=== PATIENT | male | born 1945 | race African-American/Black ===

== ENCOUNTER 2018-12-07 00:56 | Emergency (ER) | payer OTHER | END 2018-12-07 12:45 | disposition home or self-care (01) | LOC: ER FS 00:56 → 4TH 01:42 ==

== ENCOUNTER 2018-12-11 17:06 | Emergency (ER) | payer OTHER | END 2018-12-11 17:55 | disposition home or self-care (01) | LOC: ER FS 17:06 ==

== ENCOUNTER 2019-07-15 05:35 | Outpatient (CLI) | payer OTHER ==
[~2019-07-15] VITALS: Ht 187 cm; Wt 105.0 kg
[~2019-07-15 05:35] MED LIST: SUCR1TAB36 PO
[2019-07-15] MEDS ORDERED: ALLO100T PO (12:03)
[2019-07-15] MEDS ORDERED: HYDR-3812 PO (12:03)
[2019-07-15] MEDS ORDERED: INSU100V5 SQ (12:07)
[2019-07-15] MEDS ORDERED: INSU100V16 SQ (12:07)
[2019-07-15] MEDS ORDERED: METO50TA7 PO (12:17)
[2019-07-15] MEDS ORDERED: DOCU100T7 PO (12:17)
[2019-07-15] MEDS ORDERED: LOSA50TA63 PO (12:17)
[2019-07-15] MEDS ORDERED: MULT-178 PO (12:17)
[2019-07-15] MEDS ORDERED: DULA1.5P2 SQ (12:17)
[2019-07-15] MEDS ORDERED: CALC0.253 PO (12:17)
[2019-07-15] MEDS ORDERED: ATOR40TA70 PO (12:17)
[2019-07-15] MEDS ORDERED: PANT40TA3 PO (12:17)
== END 2019-07-15 12:59 | disposition home or self-care (01) ==
LOC: PREOP 05:35
PROVIDERS: ATTEND Surgery
DX: Z01.818 Encounter for other preprocedural examination (principal)

== ENCOUNTER 2019-08-13 13:04 | Emergency (ER) | payer OTHER ==
[~2019-08-13 13:04] MED LIST changes: +ACHD5005 PO; +ALLO100T PO; +ATOR40TA70 PO; +CALC0.253 PO; +DOCU100T7 PO; +DULA1.5P2 SQ; +INSU100V16 SQ; +INSU100V5 SQ; +LOSA50TA63 PO; +METO50TA7 PO; +MULT-178 PO; +PANT40TA3 PO
--- NOTE | 2019-08-13 13:17 | ED Respiratory ---
General Chief Complaint: Respiratory Problems Stated Complaint: SOB Source: patient, EMS Exam Limitations: no limitations History of Present Illness Date Seen by Provider: Aug 13, 2019 Time Seen by Provider: 13:16 Initial Comments 74-year-old male presents with shortness of breath. Patient reports that right after dialysis he got really short of breath. Patient has had a cough and illness for about a week. Patient denies any fever and is afebrile upon presenta tion. He does have some mild shortness of breath. Patient was given oxygen in route and reports he felt a lot better. Patient has no nausea vomiting or other systemic complaints. Allergies and Home Medications Allergies Coded Allergies: niacin (Verified Allergy, Mild, WEAKNESS, 07/15/19) Home Medications Albuterol Sulfate 2.5 Mg/3 Ml Vial.neb, 2.5 MG INH Q4H PRN for WHEEZING Prescribed by: KAROLINA DORAN on 08/13/19 1420 Allopurinol 100 Mg Tablet, 100 MG PO DAILY, (Reported) Atorvastatin Calcium 40 Mg Tablet, 40 MG PO DAILY, (Reported) Calcitriol 0.25 Mcg Capsule, 1 MCG PO MoWeFr, (Reported) Docusate Sodium 100 Mg Tablet, 100 MG PO DAILY, (Reported) Doxycycline Hyclate 100 Mg Tablet, 100 MG PO BID Prescribed by: KAROLINA DORAN on 08/13/19 142 Dulaglutide 1.5 Mg/0.5 Ml Pen.injctr, 1.5 MG SQ WEEK, (Reported) Hydrocodone Bit/Acetaminophen 1 Each Tablet, 1 TAB PO Q4-6HR, (Reported) Insulin Aspart 100 Unit/1 Ml Susp, 10-20 UNIT SQ AC, (Reported) Insulin Determir 1,000 Units/10 Ml Soln, 70 UNITS SQ HS, (Reported) Losartan Potassium 50 Mg Tablet, 50 MG PO DAILY, (Reported) Metoprolol Succinate 50 Mg Tab.er.24h, 150 MG PO BID, (Reported) Multivitamin 1 Each Tablet, 1 EACH PO DAILY, (Reported) Pantoprazole Sodium 40 Mg Tablet.dr, 40 MG PO DAILY, (Reported) Patient Home Medication List Home Medication List Reviewed: Yes Review of Systems Review of Systems Constitutional: see HPI EENTM: no symptoms reported Respiratory: cough, short of breath Cardiovascular: No chest pain, No palpitations Gastrointestinal: no symptoms reported Genitourinary: no symptoms reported Musculoskeletal: no symptoms reported Psychiatric/Neurological: No Symptoms Reported Past Lrreuqr-Yttajk-Hsxuem Hx Past Med/Social Hx: Reviewed Nursing Past Med/Soc Hx Patient Social History Alcohol Use: Denies Use Recreational Drug Use: No Smoking Status: Former Smoker Former Smoker, Quit: Jul 15, 1996 2nd Hand Smoke Exposure: Yes Recent Foreign Travel: Yes Recent Hopitalizations: No Immunizations Up To Date Date of Pneumonia Vaccine: Mar 09, 2018 Date of Influenza Vaccine: Mar 03, 2019 Seasonal Allergies Seasonal Allergies: No Past Medical History Surgeries: Yes (av graft, shoulder surgery, PROSTATE) Respiratory: No Cardiac: Yes (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, HAS HAD EPISODE A-FIB) Atrial Fibrillation, Coronary Artery Disease, Heart Attack, High Cholesterol, Hypertension Neurological: No Sexually Transmitted Disease: No HIV/AIDS: No Genitourinary: Yes Renal Failure, Dialysis Gastrointestinal: Yes Gastroesophageal Reflux, Chronic Constipation Musculoskeletal: Yes Arthritis, Chronic Back Pain Endocrine: Yes Diabetes, Insulin dep HEENT: No (READING GLASSES, DENTURES) Loss of Vision: Denies Hearing Impairment: Denies Cancer: Yes Prostate Did You Recieve Any Treatments: Yes What Type of Treatment Did You: Radiation, Surgical Intervention Psychosocial: No Integumentary: No Blood Disorders: Yes (ANEMIA) Adverse Reaction/Blood Tranf: No (HAS HAD BLOOD WITH NO REACTION) Family Medical History Cardiovascular disease 19 FATHER 19 MOTHER Diabetes mellitus 19 FATHER 19 MOTHER FH: prostate cancer 19 FATHER No Pertinent Family Hx Physical Exam Vital Signs - First Documented 08/13/19 13:09 Temp 36.4 Pulse 85 Resp 22 B/P (MAP) 197/66 (109) Pulse Ox 96 O2 Delivery Nasal Cannula O2 Flow Rate 2.00 Capillary Refill : Height: 6'1.00" Weight: 222lbs. 0.0oz. 100.775834hd; 30.02 BMI Method:Stated General Appearance: WD/WN, no apparent distress HEENT: PERRL/EOMI Neck: non-tender Respiratory: decreased breath sounds (mild diffuse) Cardiovascular: normal peripheral pulses, regular rate, rhythm Gastrointestinal: non tender, soft Extremities: normal range of motion, non-tender Neurologic/Psychiatric: normal mood/affect, oriented x 3 Skin: normal color, warm/dry Progress/Results/Core Measures Suspected Sepsis SIRS Temperature: Pulse: Respiratory Rate: Laboratory Tests 08/13/19 13:15: White Blood Count 5.4 Blood Pressure / Mean: Laboratory Tests 08/13/19 13:15: Creatinine 5.53H, Platelet Count 108L, Total Bilirubin 0.7 Results/Orders Lab Results Laboratory Tests Test 08/13/19 13:15 Range/Units White Blood Count 5.4 4.3-11.0 10^3/uL Red Blood Count 3.88 L 4.35-5.85 10^6/uL Hemoglobin 11.1 L 13.3-17.7 G/DL Hematocrit 35 L 40-54 % Mean Corpuscular Volume 89 80-99 FL Mean Corpuscular Hemoglobin 29 25-34 PG Mean Corpuscular Hemoglobin Concent 32 32-36 G/DL Red Cell Distribution Width 15.9 H 10.0-14.5 % Platelet Count 108 L 130-400 10^3/uL Mean Platelet Volume 13.3 H 7.4-10.4 FL Neutrophils (%) (Auto) 69 42-75 % Lymphocytes (%) (Auto) 14 12-44 % Monocytes (%) (Auto) 15 H 0-12 % Eosinophils (%) (Auto) 1 0-10 % Basophils (%) (Auto) 1 0-10 % Neutrophils # (Auto) 3.8 1.8-7.8 X 10^3 Lymphocytes # (Auto) 0.8 L 1.0-4.0 X 10^3 Monocytes # (Auto) 0.8 0.0-1.0 X 10^3 Eosinophils # (Auto) 0.0 0.0-0.3 10^3/uL Basophils # (Auto) 0.0 0.0-0.1 10^3/uL Sodium Level 140 135-145 MMOL/L Potassium Level 2.6 L 3.6-5.0 MMOL/L Chloride Level 94 L 98-107 MMOL/L Carbon Dioxide Level 23 21-32 MMOL/L Anion Gap 23 H 5-14 MMOL/L Blood Urea Nitrogen 20 H 7-18 MG/DL Creatinine 5.53 H 0.60-1.30 MG/DL Estimat Glomerular Filtration Rate 12 BUN/Creatinine Ratio 4 Glucose Level 202 H 70-105 MG/DL Calcium Level 9.7 8.5-10.1 MG/DL Corrected Calcium 9.6 8.5-10.1 MG/DL Magnesium Level 2.0 1.6-2.4 MG/DL Total Bilirubin 0.7 0.1-1.0 MG/DL Aspartate Amino Transf (AST/SGOT) 31 5-34 U/L Alanine Aminotransferase (ALT/SGPT) 20 0-55 U/L Alkaline Phosphatase 141 H 40-136 U/L C-Reactive Protein 4.48 H <0.50 MG/DL Total Protein 7.5 6.4-8.2 GM/DL Albumin 4.1 3.2-4.5 GM/DL Micro Results Microbiology 08/13/19 Influenza Types A,B Antigen (ASHLEE) - Final, Complete 08/13/19 Respiratory Syncytial Virus Ag - Final, Complete My Orders Orders - DORAN,KAROLINA L DO Cbc With Automated Diff (08/13/19 13:17) Comprehensive Metabolic Panel (08/13/19 13:17) Ipratropium 0.02% Neb Solution (Atrovent (08/13/19 13:30) Magnesium (08/13/19 13:17) Chest Pa/Lat (2 View) (08/13/19 13:17) Ekg Tracing (08/13/19 13:17) O2 (08/13/19 13:17) Ed Iv/Invasive Line Start (08/13/19 13:17) Monitor-Rhythm Ecg Trace Only (08/13/19 13:17) Crp Fs (08/13/19 13:17) Svn Small Volume Nebulizer (08/13/19 13:17) Influenza A And B Antigens (08/13/19 13:17) Rsv Antigen (08/13/19 13:17) Potassium Chloride (Tablet) (K Dur Table (08/13/19 14:00) Medications Given in ED Current Medications Medications Dose Ordered Sig/Sp Route Start Time Stop Time Status Last Admin Dose Admin Ipratropium [place] 0.5 mg ONCE ONCE IH 08/13/19 13:30 08/13/19 13:31 DC 08/13/19 13:25 0.5 MG Vital Signs/I&O 08/13/19 13:09 Temp 36.4 Pulse 85 Resp 22 B/P (MAP) 197/66 (109) Pulse Ox 96 O2 Delivery Nasal Cannula O2 Flow Rate 2.00 Capillary Refill : Progress Note : Time: 14:23 Progress Note Patient's breathing improved signally with her breathing treatment. Patient with a bilateral pneumonia on x-ray. Due to current covid recommendations her CBC patient does not meet qualifications for testing. Patient does not have a fever and symptoms. And he has no known close contact with a confirmed case. Due to these recommendations patient will not be further tested. I will prescribe him an albuterol inhaler and doxycycline for his pneumonia. ECG Initial ECG Impression Date: Aug 13, 2019 Initial ECG Impression Time: 13:17 Initial ECG Rhythm: Normal Sinus Initial ECG Intervals: NC (281) Initial ECG Impression: Nonspecific Changes Diagnostic Imaging Diagonstic Imaging: Xray Plain Films/CT/US/NM/MRI: chest Comments NAME: MANISH SUAREZ [facility] REC#: [id number] PT STATUS: REG ER : 1945 PHYSICIAN: KAROLINA DORAN DO ADMIT DATE: 08/13/19/ER FS Draft Date of Exam:08/13/19 CHEST PA/LAT (2 VIEW) EXAMINATION: CHEST (PA AND LATERAL). CLINICAL INDICATION: 73-year-old male, shortness of breath. COMPARISON: None. FINDINGS: The heart size and mediastinal contours are unremarkable. There are atherosclerotic calcifications. There is no identified pneumothorax. There are small bilateral pleural effusions. There are bilateral predominantly interstitial opacities. There appears to be additional alveolar consolidation in the right lower lobe and potentially within the medial aspect of the left lower lobe. IMPRESSION: 1. Small bilateral pleural effusions with bilateral predominantly interstitial opacities. Interstitial opacities can be seen with pulmonary interstitial edema or atypical infection. 2. Additional nonspecific alveolar consolidation in the right lower lobe and potentially within the medial aspect of the left lower lobe. Departure Impression Primary Impression: Pneumonia Qualified Codes: J18.9 - Pneumonia, unspecified organism Disposition: 01 HOME, SELF-CARE Condition: Stable Departure-Patient Inst. Referrals: NO,LOCAL PHYSICIAN (PCP/Family) Primary Care Physician Patient Instructions: Pneumonia, Adult (DC) Add. Discharge Instructions: Please stay isolated for 14 days due to concerns for coronavirus. Use inhaler every 4 hours for the first 24 hours while awake then as needed Call your primary care provider in the next 2-3 days for a telemedicine consult to ensure improvement Return to the ER if symptoms severely worsen Emergency department focuses on treating and ruling out life-threatening diseases. Whenever possible, a diagnosis is given. However, most patients are given an impression based on their history, physical exam, and workup during your brief time in the ER. Information about probable diagnosis and other educational material has been provided. Please take the time to read and understand this information. It is very important that you follow up with a physician as discussed during the visit today. Failure to adhere to your follow-up instructions may lead to severe disability, injury, or so please make sure to keep your appointments or obtain one as requested. Please keep in mind the emergency department is not designed to your primary care or "family doctor" and nonurgent issues are best evaluated by an outpatient physician All discharge instructions reviewed with patient and/or family. Voiced understanding. Scripts Doxycycline Hyclate (Doxycycline Hyclate) 100 Mg Tablet 100 MG PO BID, #20 TAB 0 Refills Prov: KAROLINA DORAN DO 08/13/19 Albuterol Sulfate (Albuterol Sulfate) 2.5 Mg/3 Ml Vial.neb 2.5 MG INH Q4H PRN for WHEEZING, #50 EA 1 Refill Prov: KAROLINA DORAN DO 08/13/19 KAROLINA DORAN DO Aug 13, 2019 13:16
[2019-08-13] MEDS ORDERED: RT-IPRATROPIUM (ATROVENT) 0.5MG/2.5ML AMP IH ONE (13:30)
[2019-08-13 13:45] LABS: HEMATOCRIT 35 % (40-54); HEMOGLOBIN 11.1 G/DL (13.3-17.7); MEAN CORPUSCULAR HEMOGLOBIN 29 PG (25-34); MEAN CORPUSCULAR HGB CONC 32 G/DL (32-36); MEAN CORPUSCULAR VOLUME 89 FL (80-99); RED CELL DISTRIBUTION WIDTH 15.9 % (10.0-14.5); WHITE BLOOD COUNT 5.4 10^3/uL (4.3-11.0)
[2019-08-13 13:46] LABS: BASOPHILS % (AUTO) 1 % (0-10); EOSINOPHILS % (AUTO) 1 % (0-10); LYMPHOCYTES # (AUTO) 0.8 X 10^3 (1.0-4.0); LYMPHOCYTES % (AUTO) 14 % (12-44); MEAN PLATELET VOLUME 13.3 FL (7.4-10.4); MONOCYTES # (AUTO) 0.8 X 10^3 (0.0-1.0); MONOCYTES % (AUTO) 15 % (0-12); NEUTROPHILS # (AUTO) 3.8 X 10^3 (1.8-7.8); NEUTROPHILS % (AUTO) 69 % (42-75); PLATELET COUNT 108 10^3/uL (130-400)
[2019-08-13 13:47] LABS: CREATININE SERUM 5.53 MG/DL (0.60-1.30); POTASSIUM 2.6 MMOL/L (3.6-5.0)
[2019-08-13 13:48] LABS: ALBUMIN 4.1 GM/DL (3.2-4.5); BILIRUBIN,TOTAL 0.7 MG/DL (0.1-1.0); CALCIUM 9.7 MG/DL (8.5-10.1); TOTAL PROTEIN 7.5 GM/DL (6.4-8.2)
--- NOTE | 2019-08-13 13:49 | Diagnostic Imaging Report ---
EXAMINATION: CHEST (PA AND LATERAL). CLINICAL INDICATION: 73-year-old male, shortness of breath. COMPARISON: None. FINDINGS: The heart size and mediastinal contours are unremarkable. There are atherosclerotic calcifications. There is no identified pneumothorax. There are small bilateral pleural effusions. There are bilateral predominantly interstitial opacities. There appears to be additional alveolar consolidation in the right lower lobe and potentially within the medial aspect of the left lower lobe. IMPRESSION: 1. Small bilateral pleural effusions with bilateral predominantly interstitial opacities. Interstitial opacities can be seen with pulmonary interstitial edema or atypical infection. 2. Additional nonspecific alveolar consolidation in the right lower lobe and potentially within the medial aspect of the left lower lobe. Dictated by: Dictated on workstation # [id number]
[2019-08-13] MEDS ORDERED: KCL 20 MEQ TAB (K-DUR) PO ONE (14:00)
[2019-08-13] MEDS ORDERED: ALBU2.5V4 INH (14:20)
[2019-08-13] MEDS ORDERED: DOXY100T2 PO (14:20)
[2019-08-13 14:39] VITALS: BP 175/53
--- OUTSIDE RECORDS SUMMARY | 2019-08-13 17:23 | XMS REPORT | Continuity of Care Document ---
Author Organization Unknown Address Unknown Phone Unavailable Allergies Active Description Code Type Severity Reaction Onset Reported/Identified Relationship to Patient Clinical Status Yes niacin [id number] Drug Allergy Unknown N/A 12/07/2018 Yes No Known Drug Allergies [id number] Drug Allergy Unknown N/A 12/07/2018 Yes niacin [id number] Drug Allergy Mild WEAKNESS 07/15/2019 Medications There is no data. Problems Date Dx Coded Attending Type Code Diagnosis Diagnosed By 12/07/2018 SULEMAN PADGETT DO Ot E11. 9 TYPE 2 DIABETES MELLITUS WITHOUT COMPLIC 12/07/2018 SULEMAN PADGETT DO Ot I10 ESSENTIAL (PRIMARY) HYPERTENSION 12/07/2018 SULEMAN PADGETT DO Ot K25. 9 GASTRIC ULCER, UNSP ACUTE OR CHRONIC, 12/07/2018 SULEMAN PADGETT DO Ot K29. 50 UNSPECIFIED CHRONIC GASTRITIS WITHOUT BL 12/07/2018 SULEMAN PADGETT DO Ot K31. 9 DISEASE OF STOMACH AND DUODENUM, UNSPECI 12/07/2018 SULEMAN PADGETT DO Ot N19 UNSPECIFIED KIDNEY FAILURE 12/07/2018 SULEMAN PADGETT DO Ot Z79. 4 SKILLED NURSING (CURRENT) USE OF INSULIN 12/07/2018 SULEMAN PADGETT DO Ot Z79.899 OTHER SUSTAINABILITY CONSULTANT (CURRENT) DRUG THERAPY 12/07/2018 SULEMAN PADGETT DO Ot Z80. 42 FAMILY HISTORY OF MALIGNANT NEOPLASM OF 12/07/2018 SULEMAN PADGETT DO Ot Z82. 49 FAMILY HX OF ISCHEM HEART DIS AND OTH DI 12/07/2018 SULEMAN PADGETT DO Ot Z83. 3 FAMILY HISTORY OF DIABETES MELLITUS 12/07/2018 SULEMAN PADGETT DO Ot Z88. 8 ALLERGY STATUS TO OTH DRUG/MEDS/BIOL SUB 12/07/2018 SULEMAN PADGETT DO Ot Z99. 2 DEPENDENCE ON RENAL DIALYSIS 12/11/2018 EBER BECERRA DO Ot D64.9 ANEMIA, UNSPECIFIED 12/11/2018 EBER BECERRA DO, Ot Z80.42 FAMILY HISTORY OF MALIGNANT NEOPLASM OF 12/11/2018 EBER BECERRA DO Ot Z82.49 FAMILY HX OF ISCHEM HEART DIS AND OTH DI 12/11/2018 EBER BECERRA DO Ot Z88.8 ALLERGY STATUS TO OTH DRUG/MEDS/BIOL SUB 12/11/2018 EBER BECERRA DO Ot Z99.2 DEPENDENCE ON RENAL DIALYSIS 12/13/2018 SULEMAN PADGETT DO Ot K25. 9 GASTRIC ULCER, UNSP ACUTE OR CHRONIC, 12/13/2018 SULEMAN PADGETT DO Ot K29. 50 UNSPECIFIED CHRONIC GASTRITIS WITHOUT BL 12/13/2018 SULEMAN PADGETT DO, Ot K31. 9 DISEASE OF STOMACH AND DUODENUM, UNSPECI 12/13/2018 SULEMAN PADGETT DO Ot N19 UNSPECIFIED KIDNEY FAILURE 12/13/2018 SULEMAN PADGETT DO Ot Z79.899 OTHER SKILLED NURSING (CURRENT) DRUG THERAPY 12/13/2018 SULEMAN PADGETT DO, Ot Z80. 42 FAMILY HISTORY OF MALIGNANT NEOPLASM OF 12/13/2018 SULEMAN PADGETT DO Ot Z82. 49 FAMILY HX OF ISCHEM HEART DIS AND OTH DI 12/13/2018 SULEMAN PADGETT DO Ot Z83. 3 FAMILY HISTORY OF DIABETES MELLITUS 12/13/2018 SULEMAN PADGETT DO Ot Z88. 8 ALLERGY STATUS TO OTH DRUG/MEDS/BIOL SUB 12/13/2018 SULEMAN PADGETT DO Ot Z99. 2 DEPENDENCE ON RENAL DIALYSIS 12/18/2018 EBER BECERRA DO Ot D64.9 ANEMIA, UNSPECIFIED 12/18/2018 EBER BECERRA DO Ot Z80.42 FAMILY HISTORY OF MALIGNANT NEOPLASM OF 12/18/2018 EBER BECERRA DO Ot Z82.49 FAMILY HX OF ISCHEM HEART DIS AND OTH DI 12/18/2018 EBER BECERRA DO, Ot Z88.8 ALLERGY STATUS TO OTH DRUG/MEDS/BIOL SUB 12/18/2018 EBER BECERRA DO Ot Z99.2 DEPENDENCE ON RENAL DIALYSIS 07/15/2019 SULEMAN PADGETT DO Ot Z01.818 ENCOUNTER FOR OTHER PREPROCEDURAL EXAMIN 07/17/2019 SULEMAN PADGETT DO Ot Z01.818 ENCOUNTER FOR OTHER PREPROCEDURAL EXAMIN Procedures There is no data. Results Test Result Range Complete blood count (CBC) with automate d white blood cell (WBC) differential - 12/07/18 01:17 Blood leukocytes automated count (number/volume) 8.6 10*3/uL 4.3-11.0 Blood erythrocytes automated count (number/volume) 2.68 10*6/uL 4.35-5.85 Venous blood hemoglobin measurement (mass/volume) 8.0 g/dL 13.3-17.7 Blood hematocrit (volume fraction) 25 % 40-54 Automated erythrocyte mean corpuscular volume 95 [ foz_us] 80-99 Automated erythrocyte mean corpuscular h emoglobin (mass per erythrocyte) 30 pg 25-34 Automated erythrocyte mean corpuscular h emoglobin concentration measurement (mass/volume) 32 g/dL 32-36 Automated erythrocyte distribution width ratio 18. 4 % 10.0- 14.5 Automated blood platelet count (count/volume) 168 10*3/uL 130-400 Automated blood platelet mean volume measurement 12.5 [foz_us] 7.4-10.4 Automated blood neutrophils/100 leukocytes 71 % 42-75 Automated blood lymphocytes/100 leukocytes 17 % 12-44 Blood monocytes/100 leukocytes 9 % 0-12 Automated blood eosinophils/100 leukocytes 2 % 0-10 Automated blood basophils/100 leukocytes 1 % 0-10 Blood neutrophils automated count (number/volume) 6.2 10*3 1.8-7.8 Blood lymphocytes automated count (number/volume) 1.4 10*3 1.0-4.0 Blood monocytes automated count (number/volume) 0. 7 10*3 0.0-1.0 Automated eosinophil count 0.2 10*3/uL 0 .0-0.3 Automated blood basophil count (count/volume) 0.1 10*3/uL 0.0-0.1 Comprehensive metabolic panel - 12/07/18 01:17 Serum or plasma sodium measurement (moles/volume) 140 mmol/L 135-145 Serum or plasma potassium measurement (moles/volume) 3.1 mmol/L 3.6-5.0 Serum or plasma chloride measurement (moles/volume) 94 mmol/L 98-107 Carbon dioxide 22 mmol/L 21-32 Serum or plasma anion gap determination (moles/volume) 24 mmol/L 5-14 Serum or plasma urea nitrogen measurement (mass/volume ) 47 mg/dL 7-18 Serum or plasma creatinine measurement (mass/volume) 7.17 mg/dL 0.60-1.30 Serum or plasma urea nitrogen/creatinine mass ratio 7 NRG Serum or plasma creatinine measurement w ith calculation of estimated glomerular filtration rate 9 NRG Serum or plasma glucose measurement (mass/volume) 269 mg/dL 70-105 Serum or plasma calcium measurement (mass/volume) 9.2 mg/dL 8.5-10.1 Serum or plasma total bilirubin measurement (mass/volu me) 1.1 mg/dL 0.1-1.0 Serum or plasma alkaline phosphatase freedom surement (enzymatic activity/volume) 64 U/L 40-136 Serum or plasma aspartate aminotransfera se measurement (enzymatic activity/volume) 107 U/L 5-34 Serum or plasma alanine aminotransferase measurement (enzymatic activity/volume) 20 U/L 0-55 Serum or plasma protein measurement (mass/volume) 7.0 g/dL 6.4-8.2 Serum or plasma albumin measurement (mass/volume) 3.8 g/dL 3.2-4.5 CALCIUM CORRECTED 9.4 mg/dL 8.5-10.1 Methicillin resistant Staphylococcus aur eus (MRSA) screening culture - 12/07/18 09:00 Methicillin resistant Staphylococcus aureus (MRSA) scr eening culture NEG NRG Capillary blood glucose measurement by g lucometer (mass/volume) - 12/07/18 10:11 Capillary blood glucose measurement by glucometer (mas s/volume) 234 mg/dL 70-110 Automated blood complete blood count (he mogram) panel - 12/11/18 17:25 Blood leukocytes automated count (number/volume) 4.7 10*3/uL 4.3-11.0 Blood erythrocytes automated count (number/volume) 2.50 10*6/uL 4.35-5.85 Venous blood hemoglobin measurement (mass/volume) 7.3 g/dL 13.3-17.7 Blood hematocrit (volume fraction) 24 % 40-54 Automated erythrocyte mean corpuscular volume 95 [ foz_us] 80-99 Automated erythrocyte mean corpuscular h emoglobin (mass per erythrocyte) 29 pg 25-34 Automated erythrocyte mean corpuscular h emoglobin concentration measurement (mass/volume) 31 g/dL 32-36 Automated erythrocyte distribution width ratio 18. 6 % 10.0- 14.5 Automated blood platelet count (count/volume) 189 10*3/uL 130-400 Automated blood platelet mean volume measurement 11.3 [foz_us] 7.4-10.4 Complete blood count (CBC) with automate d white blood cell (WBC) differential - 08/13/19 13:15 Blood leukocytes automated count (number/volume) 5.4 10*3/uL 4.3-11.0 Blood erythrocytes automated count (number/volume) 3.88 10*6/uL 4.35-5.85 Venous blood hemoglobin measurement (mass/volume) 11.1 g/dL 13.3-17.7 Blood hematocrit (volume fraction) 35 % 40-54 Automated erythrocyte mean corpuscular volume 89 [ foz_us] 80-99 Automated erythrocyte mean corpuscular h emoglobin (mass per erythrocyte) 29 pg 25-34 Automated erythrocyte mean corpuscular h emoglobin concentration measurement (mass/volume) 32 g/dL 32-36 Automated erythrocyte distribution width ratio 15. 9 % 10.0- 14.5 Automated blood platelet count (count/volume) 108 10*3/uL 130-400 Automated blood platelet mean volume measurement 13.3 [foz_us] 7.4-10.4 Automated blood neutrophils/100 leukocytes 69 % 42-75 Automated blood lymphocytes/100 leukocytes 14 % 12-44 Blood monocytes/100 leukocytes 15 % 0-12 Automated blood eosinophils/100 leukocytes 1 % 0-10 Automated blood basophils/100 leukocytes 1 % 0-10 Blood neutrophils automated count (number/volume) 3.8 10*3 1.8-7.8 Blood lymphocytes automated count (number/volume) 0.8 10*3 1.0-4.0 Blood monocytes automated count (number/volume) 0. 8 10*3 0.0-1.0 Automated eosinophil count 0.0 10*3/uL 0 .0-0.3 Automated blood basophil count (count/volume) 0.0 10*3/uL 0.0-0.1 Comprehensive metabolic panel - 08/13/19 13:15 Serum or plasma sodium measurement (moles/volume) 140 mmol/L 135-145 Serum or plasma potassium measurement (moles/volume) 2.6 mmol/L 3.6-5.0 Serum or plasma chloride measurement (moles/volume) 94 mmol/L 98-107 Carbon dioxide 23 mmol/L 21-32 Serum or plasma anion gap determination (moles/volume) 23 mmol/L 5-14 Serum or plasma urea nitrogen measurement (mass/volume ) 20 mg/dL 7-18 Serum or plasma creatinine measurement (mass/volume) 5.53 mg/dL 0.60-1.30 Serum or plasma urea nitrogen/creatinine mass ratio 4 NRG Serum or plasma creatinine measurement w ith calculation of estimated glomerular filtration rate 12 NRG Serum or plasma glucose measurement (mass/volume) 202 mg/dL 70-105 Serum or plasma calcium measurement (mass/volume) 9.7 mg/dL 8.5-10.1 Serum or plasma total bilirubin measurement (mass/volu me) 0.7 mg/dL 0.1-1.0 Serum or plasma alkaline phosphatase freedom surement (enzymatic activity/volume) 141 U/L 40-136 Serum or plasma aspartate aminotransfera se measurement (enzymatic activity/volume) 31 U/L 5-34 Serum or plasma alanine aminotransferase measurement (enzymatic activity/volume) 20 U/L 0-55 Serum or plasma protein measurement (mass/volume) 7.5 g/dL 6.4-8.2 Serum or plasma albumin measurement (mass/volume) 4.1 g/dL 3.2-4.5 CALCIUM CORRECTED 9.6 mg/dL 8.5-10.1 Magnesium - 08/13/19 13:15 Magnesium 2.0 mg/dL 1.6-2.4 CRP FS - 08/13/19 13:15 CRP FS 4.48 mg/dL <0.50 Influenza virus A and B antigen detectio n - 08/13/19 13:20 FLU RESULT NEGATIVE FOR INFLUENZA A AND B ANTIGENS BY IA NRG Respiratory syncytial virus antigen dete ction - 08/13/19 13:20 RSVRESULT NEGATIVE BY IMMUNOASSAY NR Encounters ACCT No. Visit Date/Time Discharge Status Pt. Type Provider Facility Loc./Unit Complaint [id number] 08/13/2019 13:08:00 020 14:39:00 DIS Emergency DORAN DO, KAROLINA L [facility] ER FS SOB [id number] 07/22/2019 07:09:00 020 10:10:00 DIS Outpatient SULEMAN PADGETT DO [facility] ENDO FE DEF ANEMIA/HX POLYPS /HX EROSIVE ESOPHAGITITS [id number] 07/15/2019 05:35:00 020 12:59:00 DIS Outpatient SULEMAN PADGETT DO [facility] PREOP COLONOSCOPY/EGD [id number] 12/11/2018 17:06:00 019 17:55:00 DIS Emergency EBER BECERRA DO [facility] ER FS LOW HEMOGLOBIN [id number] 12/07/2018 02:15:00 019 11:08:00 DIS Outpatient SULEMAN PADGETT DO Via [address] FOOD IN THROAT
== END 2019-08-13 14:39 | disposition home or self-care (01) ==
LOC: EDUNIT# 13:04 → ER FS 13:08
DX: J18.9 Pneumonia, unspecified organism (principal); I10 Essential (primary) hypertension; I25.2 Old myocardial infarction; E78.00 Pure hypercholesterolemia, unspecified; I48.91 Unspecified atrial fibrillation; I25.10 Atherosclerotic heart disease of native coronary artery without angina pectoris; K21.9 Gastro-esophageal reflux disease without esophagitis; E11.9 Type 2 diabetes mellitus without complications; Z85.46 Personal history of malignant neoplasm of prostate; Z88.8 Allergy status to other drugs, medicaments and biological substances; Z79.4 Long term (current) use of insulin; Z87.891 Personal history of nicotine dependence; Z77.22 Contact with and (suspected) exposure to environmental tobacco smoke (acute) (chronic); Z80.42 Family history of malignant neoplasm of prostate
CPT/HCPCS: 36415; 71046; 80053; 83735; 85025; 86141; 87420; 87804; 93005; 93041

== ENCOUNTER 2019-08-15 17:14 | Emergency (ER) | payer OTHER ==
[~2019-08-15] VITALS: Ht 185 cm; Wt 104.5 kg
[~2019-08-15 17:14] MED LIST changes: +ALBU2.5V4 INH; +DOXY100T2 PO
[2019-08-15 18:27] LABS: HEMATOCRIT 36 % (40-54); HEMOGLOBIN 11.3 G/DL (13.3-17.7); MEAN CORPUSCULAR HEMOGLOBIN 29 PG (25-34)
[2019-08-15 18:28] LABS: BASOPHILS % (AUTO) 0 % (0-10); EOSINOPHILS % (AUTO) 0 % (0-10); LYMPHOCYTES # (AUTO) 0.6 X 10^3 (1.0-4.0); LYMPHOCYTES % (AUTO) 8 % (12-44); MEAN CORPUSCULAR HGB CONC 31 G/DL (32-36); MEAN CORPUSCULAR VOLUME 92 FL (80-99); MONOCYTES # (AUTO) 0.6 X 10^3 (0.0-1.0); MONOCYTES % (AUTO) 7 % (0-12); NEUTROPHILS # (AUTO) 6.8 X 10^3 (1.8-7.8); NEUTROPHILS % (AUTO) 85 % (42-75); PLATELET COUNT 95 10^3/uL (130-400); RED CELL DISTRIBUTION WIDTH 16.3 % (10.0-14.5)
--- NOTE | 2019-08-15 18:29 | Diagnostic Imaging Report ---
EXAMINATION: Single view chest. INDICATION: Recent diagnosis of pneumonia. Progressive shortness of breath. COMPARISON: Previous study from 08/13/2019. FINDINGS: Compared to the prior examination, there has been interval development of extensive alveolar consolidation throughout both of the lungs now suggesting multilobar pneumonia. Small effusion could not be excluded. No pneumothorax. Heart size appears unchanged. IMPRESSION: Fairly rapid development of now extensive multifocal alveolar consolidation throughout both lungs, most compatible with multilobar pneumonia. Dictated by: Dictated on workstation # [id number]
--- NOTE | 2019-08-15 18:37 | NUR ---
IN TALKING TO PT AT THIS TIME.
[2019-08-15] MEDS ORDERED: cefTRIAXone FOR IV USE 1,000 MG in WATER (STERILE) FOR INJECTION 10 ML IV ONE (18:45)
[2019-08-15] MEDS ORDERED: AZITHROMYCIN INJECTION 500 MG in NS (IVPB) 250 ML IV ONE (18:45)
[2019-08-15] MEDS ORDERED: NS IV 1000 ML 1,000 ML IV SCH (18:45)
[2019-08-15 18:46] LABS: POTASSIUM 2.8 MMOL/L (3.6-5.0)
[2019-08-15 18:47] LABS: ALBUMIN 4.1 GM/DL (3.2-4.5); BILIRUBIN,TOTAL 1.9 MG/DL (0.1-1.0); CALCIUM 9.9 MG/DL (8.5-10.1); CREATININE SERUM 5.02 MG/DL (0.60-1.30); TOTAL PROTEIN 7.7 GM/DL (6.4-8.2)
[2019-08-15 19:05] LABS: NEUTROPHILS % (MANUAL) 85 %
[2019-08-15 19:06] LABS: BAND NEUTROPHILS 3 %; BASOPHILS % (MANUAL) 0 %; EOSINOPHILS % (MANUAL) 0 %; LYMPHOCYTES % (MANUAL) 8 %; METAMYELOCYTES % 1 %; MONOCYTES % (MANUAL) 3 %
--- NOTE | 2019-08-15 19:17 | ED Cough/URI ---
General Chief Complaint: Respiratory Problems Stated Complaint: TROUBLE BREATHING Nursing Triage Note: PT ARRIVED VIA WC FROM HOME WITH COMPLAINTS OF SOA/FEVER. STATES HE WAS DX WITH PNEUMONIA A FEW DAYS AGO AND IS NOT BETTER. PT ARRIVED VIA POV WITH A MASK ON AT REGISTRATION. PT DOES HOME DIALYSIS FIVE DAYS A WEEK AND HAD IT TODAY. PT STATES AFTER BEING THRU REGISTRATION THAT HE HAS BEEN RUNNING A FEVER. COVID PRECAUTIONS STARTED. Sepsis Screen: No Definite Risk History of Present Illness Date Seen by Provider: Aug 15, 2019 Time Seen by Provider: 18:15 Initial Comments Patient is here with ongoing respiratory symptoms was seen here on Sunday placed on doxycycline and the diagnosis of potential pneumonia give home dialysis renal failure diabetes and today's concerning that he is not getting any better his O2 saturation in the 70s on room air. Severity/Quality: moderate, productive cough Prior Episodes/Possible Cause: occasional episodes Modifying Factors: Improves With Coughing Associated Symptoms: cough, fever/chills, nasal congestion, shortness of breath, wheezing Allergies and Home Medications Allergies Coded Allergies: niacin (Verified Allergy, Mild, WEAKNESS, 07/15/19) Home Medications Albuterol Sulfate 2.5 Mg/3 Ml Vial.neb, 2.5 MG INH Q4H PRN for WHEEZING Prescribed by: KAROLINA DORAN on 08/13/19 1420 Allopurinol 100 Mg Tablet, 100 MG PO DAILY, (Reported) Atorvastatin Calcium 40 Mg Tablet, 40 MG PO DAILY, (Reported) Calcitriol 0.25 Mcg Capsule, 1 MCG PO MoWeFr, (Reported) Docusate Sodium 100 Mg Tablet, 100 MG PO DAILY, (Reported) Doxycycline Hyclate 100 Mg Tablet, 100 MG PO BID Prescribed by: KAROLINA DORAN on 08/13/19 142 Dulaglutide 1.5 Mg/0.5 Ml Pen.injctr, 1.5 MG SQ WEEK, (Reported) Hydrocodone Bit/Acetaminophen 1 Each Tablet, 1 TAB PO Q4-6HR, (Reported) Insulin Aspart 100 Unit/1 Ml Susp, 10-20 UNIT SQ AC, (Reported) Insulin Determir 1,000 Units/10 Ml Soln, 70 UNITS SQ HS, (Reported) Losartan Potassium 50 Mg Tablet, 50 MG PO DAILY, (Reported) Metoprolol Succinate 50 Mg Tab.er.24h, 150 MG PO BID, (Reported) Multivitamin 1 Each Tablet, 1 EACH PO DAILY, (Reported) Pantoprazole Sodium 40 Mg Tablet.dr, 40 MG PO DAILY, (Reported) Patient Home Medication List Home Medication List Reviewed: Yes Review of Systems Review of Systems Constitutional: fever, malaise EENTM: nose congestion; No mouth pain, No throat pain Respiratory: short of breath, wheezing Cardiovascular: No chest pain, No edema, No palpitations Gastrointestinal: No abdominal pain, No nausea, No vomiting Musculoskeletal: No joint swelling, No muscle pain Skin: No rash Past Dizcgad-Qopomw-Fjhbdr Hx Past Med/Social Hx: Reviewed Nursing Past Med/Soc Hx Patient Social History Alcohol Use: Denies Use Recreational Drug Use: No Smoking Status: Former Smoker Former Smoker, Quit: Jul 15, 1996 2nd Hand Smoke Exposure: Yes Recent Foreign Travel: No Contact w/Someone Who Travel: No Recent Infectious Disease Expo: No Recent Hopitalizations: No Immunizations Up To Date Date of Pneumonia Vaccine: Mar 09, 2018 Date of Influenza Vaccine: Mar 03, 2019 Seasonal Allergies Seasonal Allergies: No Past Medical History Surgeries: Yes (av graft, shoulder surgery, PROSTATE) Respiratory: No Cardiac: Yes (FOLLOWS WITH [employer], HAS HAD EPISODE A-FIB) Atrial Fibrillation, Coronary Artery Disease, Heart Attack, High Cholesterol, Hypertension Neurological: No Sexually Transmitted Disease: No HIV/AIDS: No Genitourinary: Yes Renal Failure, Dialysis Gastrointestinal: Yes Gastroesophageal Reflux, Chronic Constipation Musculoskeletal: Yes Arthritis, Chronic Back Pain Endocrine: Yes Diabetes, Insulin dep HEENT: No (READING GLASSES, DENTURES) Loss of Vision: Denies Hearing Impairment: Denies Cancer: Yes Prostate Did You Recieve Any Treatments: Yes What Type of Treatment Did You: Radiation, Surgical Intervention Psychosocial: No Integumentary: No Blood Disorders: Yes (ANEMIA) Adverse Reaction/Blood Tranf: No (HAS HAD BLOOD WITH NO REACTION) Family Medical History Cardiovascular disease 19 FATHER 19 MOTHER Diabetes mellitus 19 FATHER 19 MOTHER FH: prostate cancer 19 FATHER No Pertinent Family Hx Physical Exam Vital Signs - First Documented 08/15/19 17:14 Temp 36.7 Pulse 79 Resp 20 Pulse Ox 73 O2 Delivery OxyMask O2 Flow Rate 10.00 Capillary Refill : Less Than 3 Seconds Height: 6'1.00" Weight: 222lbs. 0.0oz. 100.384117xj; 30.00 BMI Method:Stated General Appearance: WD/WN, mild distress Eyes: Bilateral Eye Normal Inspection, Bilateral Eye PERRL, Bilateral Eye EOMI HEENT: PERRL/EOMI, normal ENT inspection Neck: supple Respiratory: rhonchi, wheezing Cardiovascular: regular rate, rhythm, no murmur Gastrointestinal: non tender, soft; No distended Extremities: normal inspection Neurologic/Psychiatric: alert, oriented x 3 Skin: normal color, warm/dry Focused Exam Lactate Level 08/15/19 17:32: Lactic Acid Level 14.86*H Lactic Acid Level Laboratory Tests Test 08/15/19 17:32 Lactic Acid Level 14.86 MMOL/L (0.50-2.00) *H Progress/Results/Core Measures Suspected Sepsis Recent Fever Within 48 Hours: Yes Infection Criteria Present: Documented Infection New/Unexplained Altered Menta: No Sepsis Screen: No Definite Risk SIRS Temperature: Pulse: 79 Respiratory Rate: 20 Laboratory Tests 08/15/19 17:32: White Blood Count 8.0 Blood Pressure / Mean: 08/15/19 17:32: Lactic Acid Level 14.86*H Laboratory Tests 08/15/19 17:32: Creatinine 5.02#H, Platelet Count 95L, Total Bilirubin 1.9H Results/Orders Lab Results Laboratory Tests Test 08/15/19 17:32 Range/Units White Blood Count 8.0 4.3-11.0 10^3/uL Red Blood Count 3.91 L 4.35-5.85 10^6/uL Hemoglobin 11.3 L 13.3-17.7 G/DL Hematocrit 36 L 40-54 % Mean Corpuscular Volume 92 80-99 FL Mean Corpuscular Hemoglobin 29 25-34 PG Mean Corpuscular Hemoglobin Concent 31 L 32-36 G/DL Red Cell Distribution Width 16.3 H 10.0-14.5 % Platelet Count 95 L 130-400 10^3/uL Mean Platelet Volume 7.4-10.4 FL Neutrophils (%) (Auto) 85 H 42-75 % Lymphocytes (%) (Auto) 8 L 12-44 % Monocytes (%) (Auto) 7 0-12 % Eosinophils (%) (Auto) 0 0-10 % Basophils (%) (Auto) 0 0-10 % Neutrophils # (Auto) 6.8 1.8-7.8 X 10^3 Lymphocytes # (Auto) 0.6 L 1.0-4.0 X 10^3 Monocytes # (Auto) 0.6 0.0-1.0 X 10^3 Eosinophils # (Auto) 0.0 0.0-0.3 10^3/uL Basophils # (Auto) 0.0 0.0-0.1 10^3/uL Neutrophils % (Manual) 85 % Lymphocytes % (Manual) 8 % Monocytes % (Manual) 3 % Eosinophils % (Manual) 0 % Basophils % (Manual) 0 % Metamyelocytes % 1 % Band Neutrophils 3 % Sodium Level 140 135-145 MMOL/L Potassium Level 2.8 L 3.6-5.0 MMOL/L Chloride Level 92 L 98-107 MMOL/L Carbon Dioxide Level 15 L 21-32 MMOL/L Anion Gap 33 H 5-14 MMOL/L Blood Urea Nitrogen 22 H 7-18 MG/DL Creatinine 5.02 #H 0.60-1.30 MG/DL Estimat Glomerular Filtration Rate 14 BUN/Creatinine Ratio 4 Glucose Level 222 H 70-105 MG/DL Lactic Acid Level 14.86 *H 0.50-2.00 MMOL/L Calcium Level 9.9 8.5-10.1 MG/DL Corrected Calcium 9.8 8.5-10.1 MG/DL Total Bilirubin 1.9 H 0.1-1.0 MG/DL Aspartate Amino Transf (AST/SGOT) 222 H 5-34 U/L Alanine Aminotransferase (ALT/SGPT) 151 H 0-55 U/L Alkaline Phosphatase 237 H 40-136 U/L Pro-B-Type Natriuretic Peptide > 09733.0 H <75.0 PG/ML Total Protein 7.7 6.4-8.2 GM/DL Albumin 4.1 3.2-4.5 GM/DL Micro Results Microbiology 08/15/19 Influenza Types A,B Antigen (ASHLEE) - Final, Complete My Orders Orders - INDER PIZANO JR, MD Blood Culture (08/15/19 17:42) Influenza A And B Antigens (08/15/19 18:40) Probnp Fs (08/15/19 18:42) Azithromycin Injection (Zithromax Inject (08/15/19 18:45) Ceftriaxone For Iv Use (Rocephin For I (08/15/19 18:45) Ns Iv 1000 Ml (Sodium Chloride 0.9%) (08/15/19 18:45) Medications Given in ED Current Medications Medications Dose Ordered Sig/Sp Route Start Time Stop Time Status Last Admin Dose Admin Ceftriaxone Sodium 1000 mg/ Sterile Water 10 ml @ 200 mls/hr ONCE ONCE IV 08/15/19 18:45 08/15/19 18:47 DC 08/15/19 18:54 200 MLS/HR Vital Signs/I&O 08/15/19 08/15/19 17:14 17:14 Temp 36.7 Pulse 79 Resp 20 B/P (MAP) Pulse Ox 73 O2 Delivery OxyMask Room Air O2 Flow Rate 10.00 Capillary Refill : Less Than 3 Seconds Progress Note : Time: 19:42 Progress Note Discussed with patient about severity of illness along with his at this time feel transfer is necessary did contact Dr. Cl moreno at [facility] and they accepted in transfer we did go in test covid testing due to unidentified and respiratory illness with significant respiratory compromise. To treat him asepsis gave him Rocephin azithromycin a liter of saline as I don't have any indication that there is failure involved at all at this point. Departure Impression Primary Impression: Pneumonia Qualified Codes: J18.9 - Pneumonia, unspecified organism Disposition: XFER SHT-TRM HOSP Condition: Stable Transfer Transfer Reason: Exceeds level of care Time Spoke to Accepting Phy: 19:[address] liliana alvarado accepted in transfer to [facility] in [place] for bilateral pneumonia with hypoxia Method of Transfer: EMS Departure-Patient Inst. Referrals: NO,LOCAL PHYSICIAN (PCP/Family) Primary Care Physician INDER PIZANO JR, MD Aug 15, 2019 19:17
--- NOTE | 2019-08-15 20:48 | NUR ---
ems here for transport
[2019-08-15 20:55] VITALS: BP 179/55
--- OUTSIDE RECORDS SUMMARY | 2019-08-15 21:53 | XMS REPORT | Continuity of Care Document ---
Author Organization Unknown Address Unknown Phone Unavailable Allergies Active Description Code Type Severity Reaction Onset Reported/Identified Relationship to Patient Clinical Status Yes niacin [id number] Drug Allergy Unknown N/A 12/07/2018 Yes No Known Drug Allergies [id number] Drug Allergy Unknown N/A 12/07/2018 Yes niacin [id number] Drug Allergy Mild WEAKNESS 07/15/2019 Medications There [...] 12/07/2018 SULEMAN PADGETT DO Ot Z79. 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 12/07/2018 SULEMAN PADGETT DO [...] HISTORY OF MALIGNANT NEOPLASM OF 12/11/2018 EBER EBCERRA DO Ot Z82.49 FAMILY HX OF ISCHEM [...] 12/13/2018 SULEMAN PADGETT DO Ot Z79.899 OTHER GROUP HOME (CURRENT) DRUG THERAPY 12/13/2018 SULEMAN PADGETT DO, [...] 2 DEPENDENCE ON RENAL DIALYSIS 12/18/2018 EBER BEECRRA DO Ot D64.9 ANEMIA, UNSPECIFIED 12/18/2018 EBER [...] Ot Z01.818 ENCOUNTER FOR OTHER PREPROCEDURAL EXAMIN 08/13/2019 DORAN DO, KAROLINA L Ot E11.9 TYPE 2 DIABETES MELLITUS WITHOUT COMPLIC 08/13/2019 DORAN DO, KAROLINA L Ot E78.0 0 PURE HYPERCHOLESTEROLEMIA, UNSPECIFIED 08/13/2019 DORAN DO, KAROLINA L Ot I10 ESSENTIAL (PRIMARY) HYPERTENSION 08/13/2019 DORAN DO, KAROLINA L Ot I25.1 0 ATHSCL HEART DISEASE OF [place] CORONARY 08/13/2019 DORAN DO, KAROLINA L Ot I25.2 OLD MYOCARDIAL INFARCTION 08/13/2019 DORAN DO, KAROLINA L Ot I48.9 1 UNSPECIFIED ATRIAL FIBRILLATION 08/13/2019 DORAN DO, KAROLINA L Ot J18.9 PNEUMONIA, UNSPECIFIED ORGANISM 08/13/2019 DORAN DO, KAROLINA L Ot K21.9 GASTRO-ESOPHAGEAL REFLUX DISEASE WITHOUT 08/13/2019 DORAN DO, KAROLINA L Ot R06.0 2 SHORTNESS OF BREATH 08/13/2019 DORAN DO, KAROLINA L Ot Z77.2 2 CNTCT W AND EXPSR TO ENVIRON TOBACCO SMO 08/13/2019 DORAN DO, KAROLNIA L Ot 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 08/13/2019 DORAN DO, KAROLINA L Ot Z80.4 2 FAMILY HISTORY OF MALIGNANT NEOPLASM OF 08/13/2019 DORAN DO, KAROLINA L Ot Z85.4 6 PERSONAL HISTORY OF MALIGNANT NEOPLASM O 08/13/2019 DORAN DO, KAROLINA L Ot Z87.8 91 PERSONAL HISTORY OF NICOTINE DEPENDENCE 08/13/2019 DORAN DO, KAROLINA L Ot Z88.8 ALLERGY STATUS TO OTH DRUG/MEDS/BIOL SUB 08/15/2019 DORAN DO, KAROLINA L Ot E11.9 TYPE 2 DIABETES MELLITUS WITHOUT COMPLIC 08/15/2019 DORAN DO, KAROLINA L Ot E78.0 0 PURE HYPERCHOLESTEROLEMIA, UNSPECIFIED 08/15/2019 DORAN DO, KAROLINA L Ot I10 ESSENTIAL (PRIMARY) HYPERTENSION 08/15/2019 DORAN DO, KAROLINA L Ot I25.1 0 ATHSCL HEART DISEASE OF [place] CORONARY 08/15/2019 DORAN DO, KAROLINA L Ot I25.2 OLD MYOCARDIAL INFARCTION 08/15/2019 DORAN DO, KAROLINA L Ot I48.9 1 UNSPECIFIED ATRIAL FIBRILLATION 08/15/2019 DORAN DO, KAROLINA L Ot J18.9 PNEUMONIA, UNSPECIFIED ORGANISM 08/15/2019 DORAN DO, KAROLINA L Ot K21.9 GASTRO-ESOPHAGEAL REFLUX DISEASE WITHOUT 08/15/2019 DORAN DO, KAROLINA L Ot R06.0 2 SHORTNESS OF BREATH 08/15/2019 DORAN DO, KAROLINA L Ot Z77.2 2 CNTCT W AND EXPSR TO ENVIRON TOBACCO SMO 08/15/2019 DORAN DO, KAROLINA L Ot Z79.4 GROUP HOME (CURRENT) USE OF INSULIN 08/15/2019 DORAN DO, KAROLINA L Ot Z80.4 2 FAMILY HISTORY OF MALIGNANT NEOPLASM OF 08/15/2019 DORAN DO, KAROLINA L Ot Z85.4 6 PERSONAL HISTORY OF MALIGNANT NEOPLASM O 08/15/2019 DORAN DO, KAROLINA L Ot Z87.8 91 PERSONAL HISTORY OF NICOTINE DEPENDENCE 08/15/2019 DORAN DO, KAROLINA L Ot Z88.8 ALLERGY STATUS TO OTH DRUG/MEDS/BIOL SUB Procedures There is no data. Results Test [...] - 08/13/19 13:20 RSVRESULT NEGATIVE BY [facility] Complete blood count (CBC) with automate d white blood cell (WBC) differential - 08/15/19 17:32 Blood leukocytes automated count (number/volume) 8.0 10*3/uL 4.3-11.0 Blood erythrocytes automated count (number/volume) 3.91 10*6/uL 4.35-5.85 Venous blood hemoglobin measurement (mass/volume) 11.3 g/dL 13.3-17.7 Blood hematocrit (volume fraction) 36 % 40-54 Automated erythrocyte mean corpuscular volume 92 [ foz_us] 80-99 Automated erythrocyte mean corpuscular h emoglobin (mass per erythrocyte) 29 pg 25-34 Automated erythrocyte mean corpuscular h emoglobin concentration measurement (mass/volume) 31 g/dL 32-36 Automated erythrocyte distribution width ratio 16. 3 % 10.0- 14.5 Automated blood platelet count (count/volume) 95 1 0*3/uL 130-400 Automated blood neutrophils/100 leukocytes 85 % 42-75 Automated blood lymphocytes/100 leukocytes 8 % 12-44 Blood monocytes/100 leukocytes 7 % 0-12 Automated blood eosinophils/100 leukocytes 0 % 0-10 Automated blood basophils/100 leukocytes 0 % 0-10 Blood neutrophils automated count (number/volume) 6.8 10*3 1.8-7.8 Blood lymphocytes automated count (number/volume) 0.6 10*3 1.0-4.0 Blood monocytes automated count (number/volume) 0. 6 10*3 0.0-1.0 Automated eosinophil count 0.0 10*3/uL 0 .0-0.3 Automated blood basophil count (count/volume) 0.0 10*3/uL 0.0-0.1 Blood lactic acid measurement (moles/vol ume) - 08/15/19 17:32 Blood lactic acid measurement (moles/volume) 14.86 mmol/L 0.50-2.00 Comprehensive metabolic panel - 08/15/19 17:32 Serum or plasma sodium measurement (moles/volume) 140 mmol/L 135-145 Serum or plasma potassium measurement (moles/volume) 2.8 mmol/L 3.6-5.0 Serum or plasma chloride measurement (moles/volume) 92 mmol/L 98-107 Carbon dioxide 15 mmol/L 21-32 Serum or plasma anion gap determination (moles/volume) 33 mmol/L 5-14 Serum or plasma urea nitrogen measurement (mass/volume ) 22 mg/dL 7-18 Serum or plasma creatinine measurement (mass/volume) 5.02 mg/dL 0.60-1.30 Serum or plasma urea nitrogen/creatinine mass ratio 4 NRG Serum or plasma creatinine measurement w ith calculation of estimated glomerular filtration rate 14 NRG Serum or plasma glucose measurement (mass/volume) 222 mg/dL 70-105 Serum or plasma calcium measurement (mass/volume) 9.9 mg/dL 8.5-10.1 Serum or plasma total bilirubin measurement (mass/volu me) 1.9 mg/dL 0.1-1.0 Serum or plasma alkaline phosphatase freedom surement (enzymatic activity/volume) 237 U/L 40-136 Serum or plasma aspartate aminotransfera se measurement (enzymatic activity/volume) 222 U/L 5-34 Serum or plasma alanine aminotransferase measurement (enzymatic activity/volume) 151 U/L 0-55 Serum or plasma protein measurement (mass/volume) 7.7 g/dL 6.4-8.2 Serum or plasma albumin measurement (mass/volume) 4.1 g/dL 3.2-4.5 CALCIUM CORRECTED 9.8 mg/dL 8.5-10.1 Manual absolute plasma cell count - 07/27 17:32 Blood monocytes/100 leukocytes 3 % NRG Manual blood segmented neutrophils/100 leukocytes 85 % NRG Blood band neutrophils/100 leukocytes 3 % NRG Manual blood lymphocytes/100 leukocytes 8 % NRG Manual eosinophils/100 leukocytes in nose 0 % NRG Manual blood basophils/100 leukocytes 0 % NRG Manual blood metamyelocytes/100 leukocytes 1 % NRG PROBNP FS - 08/15/19 17:32 PROBNP FS > 68959.0 <75.0 Influenza virus A and B antigen detectio n - 08/15/19 17:42 FLU RESULT NEGATIVE FOR INFLUENZA A AND B ANTIGENS BY IA NRG Encounters ACCT No. Visit Date/Time Discharge Status Pt. Type Provider Facility Loc./Unit Complaint [id number] 08/15/2019 17:17:00 20:55:00 DIS Emergency INDER PIZANO MD [facility] ER FS TROUBLE BREATHING [id number] 08/13/2019 13:08:00 14:39:00 DIS Emergency KAROLINA DORAN DO [facility] ER FS SOB [id number] 07/22/2019 07:09:00 10:10:00 DIS Outpatient SULEMAN PADGETT DO [facility] ENDO FE DEF ANEMIA/HX POLYPS /HX EROSIVE ESOPHAGITITS [id number] 07/15/2019 05:35:00 12:59:00 DIS Outpatient SULEAMN PADGETT DO [facility] PREOP COLONOSCOPY/EGD [id number] 12/11/2018 17:06:00 019 17:55:00 DIS Emergency EBER BECERRA DO [facility] ER FS LOW HEMOGLOBIN [id number] 12/07/2018 02:15:00 019 11:08:00 DIS Outpatient SULEMAN PADGETT DO [facility] 4TH FOOD IN THROAT
--- NOTE | 2019-08-17 17:38 | NUR ---
Patients COVID-19 Testing called to me BY Dr Duggan at [facility] is positive, Notifies Mara Hilliard at [facility], NOtified [facility] in [place] over lab results [phone]. Mara Avila RN will notify family and educate them.
== END 2019-08-15 20:55 | disposition short-term general hospital (02) ==
LOC: EDUNIT# 17:14 → ER FS 17:17
DX: J18.9 Pneumonia, unspecified organism (principal); I10 Essential (primary) hypertension; E78.00 Pure hypercholesterolemia, unspecified; I25.2 Old myocardial infarction; I48.91 Unspecified atrial fibrillation; K21.9 Gastro-esophageal reflux disease without esophagitis; E11.9 Type 2 diabetes mellitus without complications; K59.09 Other constipation; Z85.46 Personal history of malignant neoplasm of prostate; Z99.2 Dependence on renal dialysis; Z79.4 Long term (current) use of insulin; Z88.8 Allergy status to other drugs, medicaments and biological substances; Z82.49 Family history of ischemic heart disease and other diseases of the circulatory system; Z80.42 Family history of malignant neoplasm of prostate
CPT/HCPCS: 36415; 71045; 80053; 83605; 83880; 85007; 85027; 87040; 87635; 87804; 96365; 96375